=== PATIENT | female | born 1985 | race Two or more races ===

== ENCOUNTER 2021-06-05 12:15 | Inpatient (IN) | payer OTHER ==
[~2021-06-05] VITALS: Ht 162.6 cm; Wt 63.0 kg
[2021-06-10] MEDS ORDERED: PRENATAL CAPLE1 EAC1 PO (21:48)
== END 2021-06-13 17:03 | disposition home or self-care (01) | DRG 998 ==
LOC: LDR 06-10 20:28 → SURG-SUITE 06-11 16:28 → SURH 06-17 12:15
PROVIDERS: ADMIT Obstetrics & Gynecology; ATTEND Obstetrics & Gynecology
PROC: 3E033VJ Introduction of Other Hormone into Peripheral Vein, Percutaneous Approach (ICD-10-PCS; 2021-06-10)
PROC: 4A1HXFZ Monitoring of Products of Conception, Cardiac Rhythm, External Approach (ICD-10-PCS; 2021-06-10)
PROC: 10907ZC Drainage of Amniotic Fluid, Therapeutic from Products of Conception, Via Natural or Artificial Opening (ICD-10-PCS; principal; 2021-06-11)
PROC: 0W8NXZZ Division of Female Perineum, External Approach (ICD-10-PCS; 2021-06-11)
DX: O99.824 Streptococcus B carrier state complicating childbirth (principal); Z3A.39 39 weeks gestation of pregnancy; Z37.0 Single live birth

== ENCOUNTER 2021-06-10 17:34 | Outpatient (CLI) | payer OTHER ==
[2021-06-10] MEDS ORDERED: PRENATAL CAPLE1 EAC1 PO (21:48)
== END 2021-06-10 20:30 | disposition still patient (30) ==
LOC: OBS/DEL 17:34
PROVIDERS: ATTEND Obstetrics & Gynecology
DX: O47.1 False labor at or after 37 completed weeks of gestation (principal); Z3A.39 39 weeks gestation of pregnancy